=== PATIENT | male | born 1955 | race Caucasian/White ===

== ENCOUNTER → 2016-08-12 | Outpatient (CLI) | payer OTHER ==
[2015-05-28 20:55] VITALS: BP 130/79
[~2016-08-12] MED LIST: FLOMAX PO; HYDRODIURIL25 MG PO; NEIGHBOR P PO; NORCO 325 MG-51 TAB PO; XANAX0.5 MG PO
== END ==
LOC: RAD 08:39
DX: M25.562 Pain in left knee (principal); M17.12 Unilateral primary osteoarthritis, left knee

== ENCOUNTER → 2016-11-03 | Outpatient (CLI) | payer OTHER ==
[2015-05-28 20:55] VITALS: BP 130/79
== END ==
LOC: LAB 06:22
DX: Z00.00 Encounter for general adult medical examination without abnormal findings (principal); E78.2 Mixed hyperlipidemia; R73.01 Impaired fasting glucose; I10 Essential (primary) hypertension; Z12.5 Encounter for screening for malignant neoplasm of prostate

== ENCOUNTER 2017-04-21 11:00 | Outpatient (RCR) | payer OTHER ==
[2015-05-28 20:55] VITALS: BP 130/79
== END 2017-04-21 11:30 | disposition still patient (30) ==
LOC: PT 11:00
DX: Z47.89 Encounter for other orthopedic aftercare (principal)

== ENCOUNTER → 2017-05-19 | Outpatient (CLI) | payer OTHER ==
[2015-05-28 20:55] VITALS: BP 130/79
[~2017-05-19] MED LIST changes: +FINASTERIDE5 M1 PO
[2017-05-19 16:53] LABS: HEMOGLOBIN 16.4 g/dL (13.5-18.0); MEAN CELL VOLUME 89 fl (78-100); MEAN CORPUSCULAR HEMOGLOBIN 29 pg (27-31); MEAN CORPUSCULAR HGB CONC 33 g/dL (33-37); MEAN PLATELET VOLUME 11.2 fl (7.4-10.4); PLATELET COUNT 290 K/mm3 (130-400); RED BLOOD COUNT 5.59 M/mm3 (4.20-5.60); RED CELL DISTRIBUTION WIDTH 13.2 % (11.5-14.5); WHITE BLOOD COUNT 9.4 K/mm3 (4.8-10.8)
[2017-05-19 16:54] LABS: PROTHROMBIN TIME 9.6 SECONDS (9.0-12.0)
[2017-05-19 17:01] LABS: ALBUMIN 4.1 g/dL (3.5-5.0); BUN/CREATININE RATIO 24.8 (6.0-26.0); CALCIUM 9.3 mg/dL (8.4-10.2); POTASSIUM 3.9 mmol/L (3.6-5.0); TOTAL BILIRUBIN 0.4 mg/dL (0.2-1.3); TOTAL PROTEIN 7.8 g/dL (6.3-8.2)
[2017-05-19 20:30] LABS: URINE APPEARANCE CLEAR; URINE COLOR YELLOW; URINE PROTEIN(semi-quant) 2+ mg/dL (NEGATIVE)
[2017-05-19 20:31] LABS: URINE GLUCOSE NEGATIVE (NEGATIVE)
[2017-05-19 20:33] LABS: URINE BILIRUBIN NEGATIVE (NEGATIVE); URINE BLOOD NEGATIVE (NEGATIVE); URINE KETONE 1+ (NEGATIVE); URINE LEUKOCYTE ESTERASE NEGATIVE (NEGATIVE); URINE NITRATE NEGATIVE (NEGATIVE); URINE UROBILINOGEN NORMAL (NORMAL)
[2017-05-19 21:18] LABS: BAND 1 % (0-10); LYMPHOCYTE 24 % (20-51); MONOCYTE 10 % (3-10); NEUTROPHILS 61 % (42-75)
== END ==
LOC: LAB 15:40
PROVIDERS: Nurse Practitioner Family
DX: Z01.818 Encounter for other preprocedural examination (principal)

== ENCOUNTER → 2017-05-23 | Outpatient (CLI) | payer OTHER ==
[~2017-05-23] VITALS: Ht 170.2 cm; Wt 110.9 kg
[2017-05-23 09:40] VITALS: BP 125/74
== END ==
LOC: AMSURD 09:06
DX: Z01.818 Encounter for other preprocedural examination (principal)

== ENCOUNTER → 2017-06-06 | Outpatient (CLI) | payer OTHER ==
[2017-05-23 09:40] VITALS: BP 125/74
== END ==
LOC: PT 09:53 → EDSTATUS 10:27
DX: Z01.818 Encounter for other preprocedural examination (principal)

== ENCOUNTER → 2017-06-20 | Outpatient (CLI) | payer OTHER ==
[2017-05-23 09:40] VITALS: BP 125/74
== END ==
LOC: RAD 18:24
DX: M79.662 Pain in left lower leg (principal); R60.0 Localized edema

== ENCOUNTER 2017-08-05 13:00 | Outpatient (RCR) | payer OTHER ==
[2017-05-23 09:40] VITALS: BP 125/74
== END 2017-08-05 13:30 | disposition home or self-care (01) ==
LOC: PT 13:00
DX: Z47.1 Aftercare following joint replacement surgery (principal); Z96.652 Presence of left artificial knee joint

== ENCOUNTER → 2018-01-06 | Outpatient (CLI) | payer OTHER ==
[2017-05-23 09:40] VITALS: BP 125/74
[2018-01-06 08:02] LABS: EOS # 0.4 (0.04-0.40); EOS % 4.4 % (0.0-4.0); HEMATOCRIT 50.3 % (42.0-52.0); HEMOGLOBIN 17.1 g/dL (13.5-18.0); LYMPH# 1.9 (1.50-4.00); MEAN CELL VOLUME 88 fl (78-100); MEAN CORPUSCULAR HEMOGLOBIN 30 pg (27-31); MEAN CORPUSCULAR HGB CONC 34 g/dL (33-37); MEAN PLATELET VOLUME 10.3 fl (7.4-10.4); NEU # 5.7 (1.40-6.50); PLATELET COUNT 297 K/mm3 (130-400); RED BLOOD COUNT 5.73 M/mm3 (4.20-5.60); WHITE BLOOD COUNT 9.1 K/mm3 (4.8-10.8)
[2018-01-06 09:32] LABS: ERYTHROCYTE SEDIMENTATION RATE 5 mm/hr (0-20)
== END ==
LOC: LAB 07:12
PROVIDERS: Orthopaedic Surgery
DX: Z47.1 Aftercare following joint replacement surgery (principal); M25.562 Pain in left knee; Z96.652 Presence of left artificial knee joint

== ENCOUNTER → 2018-03-06 | Outpatient (CLI) | payer OTHER ==
[2017-05-23 09:40] VITALS: BP 125/74
[2018-03-06 07:01] LABS: ALBUMIN 4.3 g/dL (3.5-5.0); CALCIUM 9.5 mg/dL (8.4-10.2); TOTAL BILIRUBIN 0.5 mg/dL (0.2-1.3); TOTAL PROTEIN 7.2 g/dL (6.3-8.2)
[2018-03-06 07:06] LABS: BASO # 0.1 (0.02-0.10); EOS # 0.5 (0.04-0.40); EOS % 5.5 % (0.0-4.0); HEMATOCRIT 49.4 % (42.0-52.0); LYMPH# 2.1 (1.50-4.00); MEAN CELL VOLUME 88 fl (78-100); MEAN CORPUSCULAR HEMOGLOBIN 30 pg (27-31); MEAN CORPUSCULAR HGB CONC 34 g/dL (33-37); MEAN PLATELET VOLUME 10.6 fl (7.4-10.4); MONO # 0.9 (0.20-0.80); NEU # 5.7 (1.40-6.50); PLATELET COUNT 291 K/mm3 (130-400); RED BLOOD COUNT 5.62 M/mm3 (4.20-5.60); RED CELL DISTRIBUTION WIDTH 13.2 % (11.5-14.5); WHITE BLOOD COUNT 9.3 K/mm3 (4.8-10.8)
== END ==
LOC: LAB 06:15
PROVIDERS: Physician Assistant
DX: Z00.00 Encounter for general adult medical examination without abnormal findings (principal); I10 Essential (primary) hypertension; E78.5 Hyperlipidemia, unspecified; N40.1 Benign prostatic hyperplasia with lower urinary tract symptoms; E66.9 Obesity, unspecified; J30.9 Allergic rhinitis, unspecified

== ENCOUNTER → 2018-03-13 | Day surgery (SDC) | payer OTHER ==
[2017-05-23 09:40] VITALS: BP 125/74
== END ==
LOC: MSO 08:03
DX: Z12.11 Encounter for screening for malignant neoplasm of colon (principal); I10 Essential (primary) hypertension; Z79.899 Other long term (current) drug therapy
CPT/HCPCS: 00812; J2704; J3010; J7120

== ENCOUNTER → 2018-11-03 | Outpatient (CLI) | payer OTHER ==
[2018-08-01 19:35] VITALS: BP 136/95
[~2018-11-03] MED LIST changes: +ADVIL 200MG TA200 MG PO; +FLONASE ALLERG9.9 ML NS; +RT ALBUTEROL CC18 GM IH
== END ==
LOC: RAD 14:29
DX: R05 Cough (principal)

== ENCOUNTER → 2019-03-20 | Day surgery (SDC) | payer OTHER ==
[2018-08-01 19:35] VITALS: BP 136/95
== END ==
LOC: MSO 08:17
DX: H25.12 Age-related nuclear cataract, left eye (principal); I10 Essential (primary) hypertension; G47.33 Obstructive sleep apnea (adult) (pediatric); Z96.653 Presence of artificial knee joint, bilateral; Z79.82 Long term (current) use of aspirin
CPT/HCPCS: 00142; J0171; J2250; J3010; V2632

== ENCOUNTER → 2019-07-27 | Outpatient (CLI) | payer BC ==
[2018-08-01 19:35] VITALS: BP 136/95
== END ==
LOC: RAD 16:09
DX: M51.36 Other intervertebral disc degeneration, lumbar region (principal); M43.16 Spondylolisthesis, lumbar region

== ENCOUNTER → 2019-07-30 | Outpatient (CLI) | payer BC ==
[2018-08-01 19:35] VITALS: BP 136/95
== END ==
LOC: LAB 15:49
DX: G52.0 Disorders of olfactory nerve (principal); R43.2 Parageusia

== ENCOUNTER → 2019-08-01 | Outpatient (CLI) | payer BC ==
[2018-08-01 19:35] VITALS: BP 136/95
== END ==
LOC: LAB 11:51
DX: G52.0 Disorders of olfactory nerve (principal); R43.2 Parageusia; R53.83 Other fatigue

== ENCOUNTER → 2020-07-26 | Outpatient (CLI) | payer BC, MEDICARE ==
[2018-08-01 19:35] VITALS: BP 136/95
[2020-07-26 11:15] LABS: BASO # 0.1 (0.02-0.10); HEMATOCRIT 47.3 % (42.0-52.0); HEMOGLOBIN 16.1 g/dL (13.5-18.0); LYMPH# 2.3 (1.50-4.00); MEAN CELL VOLUME 87 fl (78-100); MEAN CORPUSCULAR HEMOGLOBIN 30 pg (27-31); MEAN CORPUSCULAR HGB CONC 34 g/dL (33-37); MONO # 1.1 (0.20-0.80); NEU # 6.9 (1.40-6.50); PLATELET COUNT 287 K/mm3 (130-400); RED BLOOD COUNT 5.46 M/mm3 (4.20-5.60)
[2020-07-26 11:29] LABS: ALBUMIN 4.1 g/dL (3.4-4.8); POTASSIUM 3.9 mmol/L (3.5-5.1)
[2020-07-26 11:30] LABS: CALCIUM 9.8 mg/dL (8.3-10.5)
[2020-07-26 11:31] LABS: TOTAL PROTEIN 7.4 g/dL (6.2-8.1)
[2020-07-26 11:33] LABS: TOTAL BILIRUBIN 0.6 mg/dL (0.2-1.2)
[2020-07-26 12:17] LABS: EOS # 0.7 (0.04-0.40); EOS % 5.9 % (0.0-4.0)
== END ==
LOC: LAB 10:36
PROVIDERS: Physician Assistant
DX: Z12.5 Encounter for screening for malignant neoplasm of prostate (principal); Z13.29 Encounter for screening for other suspected endocrine disorder; I10 Essential (primary) hypertension; E78.5 Hyperlipidemia, unspecified

== ENCOUNTER → 2020-08-09 | Outpatient (CLI) | payer MEDICARE, OTHER ==
[2018-08-01 19:35] VITALS: BP 136/95
[2020-08-12 12:14] LABS: HEMATOCRIT 49.1 % (42.0-52.0); HEMOGLOBIN 16.4 g/dL (13.5-18.0); RED BLOOD COUNT 5.58 M/mm3 (4.20-5.60); WHITE BLOOD COUNT 9.1 K/mm3 (4.8-10.8)
[2020-08-12 12:15] LABS: MEAN CELL VOLUME 88 fl (78-100); MEAN CORPUSCULAR HEMOGLOBIN 29 pg (27-31); MEAN CORPUSCULAR HGB CONC 33 g/dL (33-37); MEAN PLATELET VOLUME 10.4 fl (7.4-10.4); PLATELET COUNT 315 K/mm3 (130-400); RED CELL DISTRIBUTION WIDTH 12.4 % (11.5-14.5)
[2020-08-12 12:16] LABS: BASO # 0.08 (0.02-0.10); EOS # 0.61 (0.04-0.40); EOS % 6.7 % (0.0-4.0); LYMPH# 2.01 (1.50-4.00); MONO # 0.93 (0.20-0.80); NEU # 5.47 (1.40-6.50)
[2020-08-12 12:32] LABS: POTASSIUM 5.1 mmol/L (3.5-5.1)
[2020-08-12 12:34] LABS: CALCIUM 9.3 mg/dL (8.3-10.5)
[2020-08-12 12:35] LABS: TOTAL PROTEIN 6.9 g/dL (6.2-8.1)
[2020-08-12 12:37] LABS: TOTAL BILIRUBIN 0.6 mg/dL (0.2-1.2)
== END ==
LOC: LAB 06:46
PROVIDERS: Physician Assistant
DX: I51.9 Heart disease, unspecified (principal); R73.9 Hyperglycemia, unspecified; E78.5 Hyperlipidemia, unspecified

== ENCOUNTER → 2020-11-26 | Outpatient (CLI) | payer MEDICARE, OTHER | LOC: RAD 12:13 | DX: S99.922A Unspecified injury of left foot, initial encounter (principal); S99.912A Unspecified injury of left ankle, initial encounter ==

== ENCOUNTER → 2020-12-12 | Outpatient (CLI) | payer MEDICARE, OTHER ==
[2020-12-12 18:34] LABS: POTASSIUM 4.5 mmol/L (3.5-5.1)
[2020-12-12 18:35] LABS: CALCIUM 10.2 mg/dL (8.3-10.5)
[2020-12-12 18:36] LABS: TOTAL PROTEIN 7.5 g/dL (6.2-8.1)
[2020-12-12 18:38] LABS: TOTAL BILIRUBIN 0.6 mg/dL (0.2-1.2)
[2020-12-12 18:45] LABS: BASO # 0.07 (0.02-0.10); EOS # 0.71 (0.04-0.40); HEMATOCRIT 48.5 % (42.0-52.0); HEMOGLOBIN 16.3 g/dL (13.5-18.0); LYMPH# 2.91 (1.50-4.00); MEAN CELL VOLUME 88 fl (78-100); MEAN CORPUSCULAR HEMOGLOBIN 30 pg (27-31); MEAN CORPUSCULAR HGB CONC 34 g/dL (33-37); MEAN PLATELET VOLUME 10.4 fl (7.4-10.4); MONO # 1.42 (0.20-0.80); NEU # 6.66 (1.40-6.50); PLATELET COUNT 298 K/mm3 (130-400); RED BLOOD COUNT 5.51 M/mm3 (4.20-5.60); RED CELL DISTRIBUTION WIDTH 12.3 % (11.5-14.5); WHITE BLOOD COUNT 11.8 K/mm3 (4.8-10.8)
[2020-12-12 19:04] LABS: PROTHROMBIN TIME 10.1 SECONDS (9.0-12.0)
== END ==
LOC: AMSURD 17:19
PROVIDERS: Physician Assistant
DX: Z01.818 Encounter for other preprocedural examination (principal)

== ENCOUNTER → 2020-12-16 | Outpatient (CLI) | payer MEDICARE, OTHER | LOC: RAD 15:43 | DX: Z01.818 Encounter for other preprocedural examination (principal) ==

== ENCOUNTER → 2020-12-24 | Day surgery (SDC) | payer MEDICARE, OTHER | END | disposition home or self-care (01) | LOC: MSO 06:57 | DX: H25.11 Age-related nuclear cataract, right eye (principal); I10 Essential (primary) hypertension; G47.33 Obstructive sleep apnea (adult) (pediatric); Z79.899 Other long term (current) drug therapy | CPT/HCPCS: 00142; J0171; J2250; V2632 ==

== ENCOUNTER → 2023-01-26 | Outpatient (CLI) | payer MEDICARE, OTHER ==
[2023-01-26 14:28] LABS: BASO # 0.03 K/mm3 (0.02-0.10); EOS # 0.55 K/mm3 (0.04-0.40); EOS % 8.2 % (0.0-4.0); HEMATOCRIT 47.3 % (42.0-52.0); HEMOGLOBIN 16.2 g/dL (13.5-18.0); LYMPH# 1.79 K/mm3 (1.50-4.00); MEAN CELL VOLUME 88 fl (78-100); MEAN CORPUSCULAR HEMOGLOBIN 30 pg (27-31); MEAN CORPUSCULAR HGB CONC 34 g/dL (33-37); MONO # 0.66 K/mm3 (0.20-0.80); NEU # 3.67 K/mm3 (1.40-6.50); PLATELET COUNT 253 K/mm3 (130-400); RED BLOOD COUNT 5.37 M/mm3 (4.20-5.60); RED CELL DISTRIBUTION WIDTH 12.3 % (11.5-14.5); WHITE BLOOD COUNT 6.7 K/mm3 (4.8-10.8)
[2023-01-26 14:37] LABS: ALBUMIN 4.1 g/dL (3.4-4.8)
[2023-01-26 14:38] LABS: CALCIUM 9.7 mg/dL (8.3-10.5)
[2023-01-26 14:39] LABS: TOTAL PROTEIN 7.4 g/dL (6.2-8.1)
[2023-01-26 14:41] LABS: TOTAL BILIRUBIN 0.5 mg/dL (0.2-1.2)
== END ==
LOC: LAB 14:10
PROVIDERS: Physician Assistant
DX: Z00.00 Encounter for general adult medical examination without abnormal findings (principal); Z13.29 Encounter for screening for other suspected endocrine disorder; Z12.5 Encounter for screening for malignant neoplasm of prostate; I10 Essential (primary) hypertension; E78.5 Hyperlipidemia, unspecified; E66.9 Obesity, unspecified; R73.9 Hyperglycemia, unspecified

== ENCOUNTER → 2024-02-25 | Outpatient (CLI) | payer MEDICARE ==
[2024-02-25 09:31] LABS: BASO # 0.02 K/mm3 (0.02-0.10); EOS # 0.48 K/mm3 (0.04-0.40); EOS % 5.4 % (0.0-4.0); HEMATOCRIT 51.4 % (42.0-52.0); HEMOGLOBIN 17.5 g/dL (13.5-18.0); LYMPH# 1.89 K/mm3 (1.50-4.00); MEAN CELL VOLUME 89 fl (78-100); MEAN CORPUSCULAR HEMOGLOBIN 30 pg (27-31); MEAN CORPUSCULAR HGB CONC 34 g/dL (33-37); MEAN PLATELET VOLUME 9.9 fl (7.4-10.4); MONO # 0.64 K/mm3 (0.20-0.80); NEU # 5.84 K/mm3 (1.40-6.50); PLATELET COUNT 266 K/mm3 (130-400); RED BLOOD COUNT 5.77 M/mm3 (4.20-5.60); RED CELL DISTRIBUTION WIDTH 12.4 % (11.5-14.5); WHITE BLOOD COUNT 8.9 K/mm3 (4.8-10.8)
[2024-02-25 09:38] LABS: ALBUMIN 4.2 g/dL (3.4-4.8)
[2024-02-25 09:39] LABS: CALCIUM 10.2 mg/dL (8.3-10.5)
[2024-02-25 09:41] LABS: TOTAL PROTEIN 7.4 g/dL (6.2-8.1)
[2024-02-25 09:42] LABS: TOTAL BILIRUBIN 0.7 mg/dL (0.2-1.2)
== END ==
LOC: LAB 09:18
PROVIDERS: Physician Assistant
DX: Z12.5 Encounter for screening for malignant neoplasm of prostate (principal); Z11.59 Encounter for screening for other viral diseases; I10 Essential (primary) hypertension; R73.9 Hyperglycemia, unspecified; E78.5 Hyperlipidemia, unspecified; K90.9 Intestinal malabsorption, unspecified